=== PATIENT | female | born 1980 | race Caucasian/White ===

== ENCOUNTER 2022-09-21 09:00 | Outpatient (RCR) | payer OTHER, SELFPAY ==
--- NOTE | 2022-07-01 14:20 | PTOPEVAL1 ---
Assessment and note entered by Yanci Menezes DPT Evaluation Information Assessment Status Evaluation Subjective Information Pt reports pelvic pain during and after intercourse. Also reports constant urination. Has had pain for years, some improvements after hysterectomy 4 years ago but has worsened again. Highest pain 4/10 and lowest 0/10. Pain is very low abdomen, and sometimes pelvic. Urinates more than 10 times a day, 1-2 times at night. Can hold urine 10 minutes. Infrequent incontinence, maybe once a month and a small amount at a time. Denies pain with urination. BM usually once a day, sometimes pain if constipated. Surgery for twisted ovary in 2020. Pt has been 4 times, 4 deliveries all vaginal. No complications from deliveries. Diagnosed with pelvic congestive syndrome , history of very painful periods. History of pain/discomfort with menstrual cups or tampons, sometimes pain with pap smears. Reported Pain Level Pain Score 5: Self Report Assessment PT Clinical Summary Patient is presenting to skilled therapy with a history of pelvic pain and urinary frequency. She presents with decreased pelvic floor strength and overall increased muscle tone and pain, as well as decreased core strength and VESNA. These impairments are contributing to her pain and frequent urination. She will benefit from skilled therapy to reduce pain and dysfunction. Plan of Care Interventions Hot Pack/Cold Pack,Manual Therapy,Neuro Re- education,Patient/Caregiver Education,Therapeutic Activities,Therapeutic Exercise,Self-Care/Home Management PT Services Indicated Yes Treatment Frequency and 1 time a week for 6 weeks Duration These treatments will address the objective and functional deficits as defined above. The patient will be advanced safely and appropriately in order for the patient to progress towards his/her prior level of function. Additional exercises will be introduced and as well as a comprehensive home exercise program upon discharge, if needed, ?to ensure carryover of functional gains achieved in the clinic. This treatment plan has been reviewed and agreement upon by the patient.
--- NOTE | 2022-07-20 08:42 | PCPTNOTE ---
Pt cancelled due to inclement weather.
--- NOTE | 2022-08-10 09:32 | PTOPPROG ---
Assessment and note entered by Yanci Menezes DPT Evaluation Information Assessment Status Progress Subjective Information Highest pain in last week 4/10 and lowest 0/10. Not having pain daily. States she can hold urine longer, improvements with ability to drive without needing to void. Has had a few nights where she has slept through before needing to void. Still gets up 1 time at night often. Also not as painful to hold her bladder when she needs to. Thinks she is still voiding more than 10 times a day but less than she was. Denies urine leakage. Overall thinks therapy has helped her pain a lot. Assessment PT Clinical Summary The patient has made good progress in therapy so far. She reports greatly decreased pain and improvements in her urinary frequency during the day and at night. She demonstrates improved core and LE strength as well as decreased pelvic pain on exam. Due to her progress, plan to continue therapy every other week to further address pain and frequency and anticipate discharge in 3 more visits. Plan of Care Interventions Hot Pack/Cold Pack,Manual Therapy,Neuro Re- education,Patient/Caregiver Education,Therapeutic Activities,Therapeutic Exercise,Self-Care/Home Management PT Services Indicated Yes Treatment Frequency and 1 visit every other week for 3 visits total Duration These treatments will address the objective and functional deficits as defined above. The patient will be advanced safely and appropriately in order for the patient to progress towards his/her prior level of function. Additional exercises will be introduced and as well as a comprehensive home exercise program upon discharge, if needed, ?to ensure carryover of functional gains achieved in the clinic. This treatment plan has been reviewed and agreement upon by the patient.
--- NOTE | 2022-09-21 09:33 | PTOPDC ---
Assessment and note entered by Yanci Menezes DPT Evaluation Information Assessment Status Discharge Subjective Information Pt reports no pelvic pain in at least several weeks. Reports no issues with intercourse or other activities right now. Feels confident confident with discharge today. Reported Pain Level Pain Score 0: Self Report Assessment PT Clinical Summary The patient has made excellent progress in therapy and reports no pelvic pain in the last few weeks. She reports no pain upon exam this date. Due to her progress, plan for discharge at this time. She has been educated on continuing to progress HEP independently and to contact MD and/or PT as needed. Plan of Care Interventions PT Services Indicated No Treatment Frequency and - Duration
== END 2022-09-21 10:32 | disposition home or self-care (01) ==
LOC: ANHGOSHPT 09:00
DX: N94.10 Unspecified dyspareunia (principal)
CPT/HCPCS: 97110; 97112; 97140; 97162